=== PATIENT | female | born 1960 | race Caucasian/White ===

== ENCOUNTER → 2021-07-03 | Outpatient (CLI) | payer OTHER ==
[~2021-07-03] MED LIST: ANTIVERT25 MG PO; D3 + K2 DOTS 11 EACH PO; MAGNESIUM GLYC120 MG PO; MULTI VITAMIN1 EACH PO; NOHOMEMEDICATIONS; QUERCETIN DIHYDR1 GM PO; ZINC50 MG PO
== END ==
LOC: LAB 09:41
PROVIDERS: ATTEND Student in an Organized Health Care Education/Training Program
DX: Z01.812 Encounter for preprocedural laboratory examination (principal); Z20.822 Contact with and (suspected) exposure to COVID-19

== ENCOUNTER → 2021-07-05 | Outpatient (CLI) | payer OTHER ==
[~2021-07-05] VITALS: Ht 175.3 cm; Wt 68.0 kg
--- NOTE | ~2021-07-05 | P ---
[facility] [place] [address] PROCEDURE REPORT Name: LIBERTY DUMONT Room #: REG CHAPO CoronaCorona#: [id number] Admission: 07/05/21 Attend Phys: Germain Brown Discharge: Date of : 62 Report #: [id number] THIS REPORT FOR: cc: Licha Morales MD,Germain Alcantara MD, MD ~ cc: Dr. Licha Morales DATE OF SERVICE: 07/05/2021 PROCEDURE PERFORMED: Colonoscopy with biopsies. HISTORY OF PRESENT ILLNESS: The patient is a 60-year-old female with a history of polyps in 2014, here for routine followup. Denies any symptoms, no family history of colon cancer. DESCRIPTION OF PROCEDURE: The risks and benefits of the procedure were explained to the patient, those risks including but not limited to bleeding, perforation, and the risk of sedation. She understood these risks and gave informed consent. Sedation was given using propofol per anesthesia. Next, a digital rectal exam was initially performed, which was normal. Next, using a standard Olympus colonoscope, the scope was placed in the patient's anus and advanced under direct vision to the cecum. The overall prep was excellent. The cecum and ileocecal valve were normal in appearance. In the proximal ascending colon, a 5 mm sessile polyp was noted. This was removed with cold forceps, otherwise normal. Transverse, descending colon were normal. In the sigmoid colon, a 4 mm sessile polyp also removed with cold forceps. The rectal mucosa was normal. On retroflexion, no abnormalities were noted. The scope was then withdrawn and the procedure terminated. The patient tolerated the procedure well. IMPRESSION: 1. Two small colonic polyps. 2. Otherwise normal colonoscopy. RECOMMENDATIONS: 1. Await biopsy results. 2. If polyps are hyperplastic, repeat in 10 years; if adenomatous polyps, repeat in 5 years. Thank you for allowing me to participate in her care. By: [id number] Germain Cui MD /nt
--- NOTE | 2021-07-07 14:07 | PATH ---
[facility] [place] [address] PATHOLOGY RPT PROCEDURE Name: BRYANNA DUMONT Room #: REG CHAPO Yanira.#: [id number] Admission: 07/05/21 Date of : 62 Discharge: Report #: [id number] Path Case #: [id number] [facility] Accession Number: [id number] . 01 Material submitted: . PART A: colon - ASCENDING COLON BIOPSY. Modifiers: ascending PART B: sigmoid colon - SIGMOID COLON BIOPSY . 01 Clinical history: . COLONOSCOPY . 02 Diagnosis: A. Ascending colon, endoscopic biopsy: - Fragments of tubular adenoma. - Negative for high-grade dysplasia or malignancy. . B. Sigmoid colon, endoscopic biopsy: - Colonic mucosa without significant histopathological abnormality. - Negative for adenomatous change or malignancy. (ANK:[place]; 07/07/2021) S 07/07/2021 1029 Local . 02 Electronically signed: . Penny Lopez MD, Pathologist NPI- [id number] . 01 Gross description: . A. Received in formalin labeled "Bryanna Dumont, ascending BX" and labeled on the requisition as "ascending colon BX" are multiple fragments of henning-brown soft tissue measuring in aggregate 0.8 x 0.4 x 0.1 cm. The specimen is submitted entirely in A1. . B. Received in formalin labeled "Teena, Bryanna, sigmoid BX" and labeled on the requisition as "sigmoid colon BX" are 2 fragments of henning-brown soft tissue measuring in aggregate 0.5 x 0.3 x 0.1 cm. The specimen is submitted entirely in B1. ([place]; 07/06/2021) [facility] 07/06/20[address] [facility] Local . 02 Pathologist provided ICD-10: D12.2 . 02 CPT . 102436, [id number] Specimen Comment: A courtesy copy of this report has been sent to [phone] Specimen Comment: [id number] Specimen Comment: Report sent to / [place] [address] PATHOLOGY RPT PROCEDURE Name: BRYANNA DUMONT A Room #: REG CHAPO Macias#: [id number] Admission: 07/05/21 Date of : 62 Discharge: Report #: [id number] Path Case #: [id number] Performed at: [address], [place], [place] [id number] MD Aubrey Argueta MD Phone: [phone] Performed at: [address] [id number] MD Portia Watson MD Phone: [phone]
== END | disposition home or self-care (01) ==
LOC: GI 08:01
PROVIDERS: ATTEND Specialist
DX: Z12.11 Encounter for screening for malignant neoplasm of colon (principal); Z86.010 Personal history of colon polyps; D12.2 Benign neoplasm of ascending colon; Z98.890 Other specified postprocedural states; Z79.899 Other long term (current) drug therapy; Z88.8 Allergy status to other drugs, medicaments and biological substances
CPT/HCPCS: 62110; 62900